=== PATIENT | female | born 1935 | race Caucasian/White ===

== ENCOUNTER 2018-11-18 21:31 | Observation (INO) | payer MEDICARE, OTHER ==
[2018-11-18] MEDS ORDERED: Sodium Chloride 0.9% 1,000 ML IV ONE (21:48)
--- NOTE | 2018-11-18 21:56 | EDM.PDOC ---
ED HPI GENERAL MEDICAL PROBLEM - General Chief Complaint: General Stated Complaint: Fall 3 to 5 days ago Time Seen by Provider: 11/18/18 21:45 Source of Information: Reports: Patient, EMS, Other (neighbor) History Limitations: Reports: No Limitations - History of Present Illness INITIAL COMMENTS - FREE TEXT/NARRATIVE: Patient brought to ER by EMS after somehow slipping to the ground of her home and not being able to get up for the last two days. Denies actual fall. Her neighbor is present and says that she spoke to the patient by phone Friday and Friday and that things were ok at those times. Neighbor feels that the longest the patient could have been on the floor was 2 days. Patient insists she was on the floor for 5 days. Patient knows year/month but not day of week. Is oriented to self. Neighbor relates to us that an attempt was made to get the patient admitted to a penitentiary but her daughter from [place] refused and wanted the patient to stay at home where she lives alone. House was clean/tidy per EMS. Patient reports that she was able to crawl around on the floor but was unable to get to any food/water. She is asking staff for something to eat and says she is hungry. Very chatty. Denies any pain/injury. EMS gave 500ml NS bolus en route. - Related Data Allergies Allergy/AdvReac Type Severity Reaction Status Date / Time No Known Allergies Allergy Verified 11/18/18 21:44 Home Meds: Home Meds Aspirin [Halfprin] 81 mg PO DAILY 11/18/18 [History] Haloperidol [Haldol] 0.5 mg PO DAILY 11/18/18 [History] Past Medical History Psychiatric History: Reports: Anxiety, Depression, Other (See Below) (reports that she had a nervous breakdown in 1983) Social & Family History - Family History Family Medical History: Noncontributory - Tobacco Use Smoking Status *Q: Never Smoker - Alcohol Use Alcohol Use History: No - Recreational Drug Use Recreational Drug Use: No Drug Use in Last 12 Months: No - Living Situation & Occupation Living situation: Reports: Alone ED ROS GENERAL - Review of Systems Review Of Systems: See Below Constitutional: Denies: Fever, Chills, Malaise, Diaphoresis HEENT: Reports: No Symptoms, Glasses Respiratory: Reports: No Symptoms Cardiovascular: Reports: No Symptoms. Denies: Chest Pain GI/Abdominal: Reports: No Symptoms. Denies: Abdominal Pain, Constipation, Diarrhea, Nausea, Vomiting : Reports: No Symptoms Musculoskeletal: Reports: Other (has baseline chronic osteoarthritis but denies any acute musculoskeletal injuries. ) Skin: Reports: No Symptoms (denies injuries. ) Neurological: Reports: No Symptoms Psychiatric: Reports: No Symptoms ED EXAM, GENERAL - Physical Exam Exam: See Below Exam Limited By: No Limitations General Appearance: Alert, WD/WN, No Apparent Distress Eye Exam: Bilateral Eye: EOMI, PERRL Ears: Normal External Exam Nose: No: Nasal Deformity, Nasal Swelling, Nasal Drainage Throat/Mouth: Normal Lips, Normal Voice, No Airway Compromise Head: Atraumatic, Other Neck: Supple, Non-Tender, Full Range of Motion Respiratory/Chest: No Respiratory Distress, Lungs Clear, Normal Breath Sounds, No Accessory Muscle Use, Chest Non-Tender Cardiovascular: Regular Rate, Rhythm, No Edema, No Murmur Peripheral Pulses: 2+: Radial (L), Radial (R) GI/Abdominal: Normal Bowel Sounds, Soft, Non-Tender, No Distention (Female) Exam: Deferred Rectal (Female) Exam: Deferred Back Exam: Normal Inspection. No: CVA Tenderness (L), CVA Tenderness (R), Muscle Spasm Extremities: Normal Inspection, Normal Range of Motion, Non-Tender, No Pedal Edema, Normal Capillary Refill Neurological: Alert, Oriented, Normal Cognition, No Motor/Sensory Deficits Psychiatric: Normal Affect, Normal Mood Skin Exam: Warm, Dry, Intact, Normal Color. No: Ecchymosis, Erythema Course - Vital Signs Last Recorded V/S: Last Vital Signs Temp 36.6 C 11/18/18 21:35 Pulse 80 11/18/18 21:35 Resp 16 11/18/18 21:35 BP 138/72 11/18/18 21:35 Pulse Ox 96 11/18/18 21:35 - Orders/Labs/Meds Orders: Active Orders 24 hr Category Date Time Status UA W/MICROSCOPIC [URIN] Stat Lab 11/18/18 21:45 Ordered Sodium Chloride 0.9% [Normal Saline] 1,000 ml Med 11/18/18 21:48 Active IV .BOLUS Medication Orders Sodium Chloride (Normal Saline) 1,000 mls @ 200 mls/hr IV .BOLUS ONE Stop: 11/19/18 02:47 Last Admin: 11/18/18 22:17 Dose: 200 mls/hr Labs: Laboratory Tests 11/18/18 11/18/18 11/18/18 Range/Units 21:45 21:45 21:45 WBC 8.2 (4.0-10.2) K/uL RBC 4.40 (3.77-5.09) M/uL Hgb 13.2 (11.7-15.5) g/dL Hct 38.7 (34.0-46.0) % MCV 88.0 (84.0-98.0) fL MCH 30.0 (28.2-33.3) pg MCHC 34.1 (31.7-36.0) g/dL RDW 13.3 (11.2-14.1) % Plt Count 236 (150-350) K/uL Neut % (Auto) 76.8 (45.0-80.0) % Lymph % (Auto) 13.5 (10.0-50.0) % [place] % (Auto) 8.8 (2.0-14.0) % Eos % (Auto) 0.5 (0.0-5.0) % Baso % (Auto) 0.4 (0.0-2.0) % Neut # (Auto) 6.31 (1.40-7.00) K/uL Lymph # (Auto) 1.11 (0.50-3.50) K/uL [place] # (Auto) 0.72 (0.00-1.00) K/uL Eos # (Auto) 0.04 (0.00-0.50) K/uL Baso # (Auto) 0.03 (0.00-0.20) K/uL Sodium 144 (136-145) mmol/L Potassium 3.9 (3.5-5.1) mmol/L Chloride 106 (98-107) mmol/L Carbon Dioxide 15.8 L (21.0-32.0) mmol/L BUN 26 H (7-18) mg/dL Creatinine 0.72 (0.51-1.17) mg/dL Est Cr Clr Drug Dosing 46.82 mL/min Estimated GFR (MDRD) > 60 mL/min Glucose 67 L (74-106) mg/dL Lactic Acid 1.9 (0.4-2.0) mmol/L Calcium 9.7 (8.5-10.1) mg/dL Total Bilirubin 1.4 H (0.2-1.0) mg/dL AST 102 H (15-37) U/L ALT 61 (12-78) U/L Alkaline Phosphatase 70 (46-116) IU/L Creatine Kinase 1628 H (26-308) U/L Creatine Kinase Index 2.1 (0.0-2.5) % CK-MB (CK-2) 34.00 H* (0.00-3.60) ng/mL Troponin I 0.018 (0.000-0.056) ng/mL Total Protein 6.0 L (6.4-8.2) g/dL Albumin 3.3 L (3.4-5.0) g/dL Meds: Medications Generic Name Dose Route Start Last Admin Trade Name Freq PRN Reason Stop Dose Admin Sodium Chloride 1,000 mls @ 200 mls/hr 11/18/18 21:48 11/18/18 22:17 Normal Saline IV 11/19/18 02:47 200 mls/hr .BOLUS ONE Administration - Re-Assessments/Exams Free Text/Narrative Re-Assessment/Exam: 11/18/18 23:01 Patient continues to be very alert and chatty, denying injuries. Labs obtained, with some elevation in BUN, AST, Bili, and CK noted. Plan is to admit to observation, continue IV fluids, and have PT and OT evaluate in the morning. Departure - Departure Time of Disposition: 23:05 Disposition: Refer to Observation Condition: Good Clinical Impression: Acute dehydration - Discharge Information *PRESCRIPTION DRUG MONITORING PROGRAM REVIEWED*: Not Applicable *COPY OF PRESCRIPTION DRUG MONITORING REPORT IN PATIENT DEXTER: Not Applicable Referrals: PCP,Unknown [Primary Care Provider] - Forms: ED Department Discharge - Problem List & Annotations (1) Dehydration SNOMED Code(s): 94421369 Code(s): E86.0 - DEHYDRATION Status: Acute Priority: High Annotation/ Comment:: Patient unable to get off of floor of home for approximately 48 hours. Unable to obtain food or water during this timeframe. Mild elevation BUN noted. Elevation of CK noted. Will continue to give IV fluid bolus over 5 hours and observe patient. PT and OT to see patient in AM. (2) Anxiety SNOMED Code(s): 96912753 Code(s): F41.9 - ANXIETY DISORDER, UNSPECIFIED Status: Chronic Priority: Low Annotation/Comment:: Stable per patient. - Problem List Review Problem List Initiated/Reviewed/Updated: Yes - My Orders Last 24 Hours: My Active Orders 11/18/18 21:45 UA W/MICROSCOPIC [URIN] Stat 11/18/18 21:48 Sodium Chloride 0.9% [Normal Saline] 1,000 ml IV .BOLUS - Assessment/Plan Admission H&P: Please use this note as an admission H&P Last 24 Hours: My Active Orders 11/18/18 21:45 UA W/MICROSCOPIC [URIN] Stat 11/18/18 21:48 Sodium Chloride 0.9% [Normal Saline] 1,000 ml IV .BOLUS Assessment:: Dehydration s/p unable to get up off of floor at home for 48 hours Plan: as above. Patient stable and appropriate for generalized supervision. Anticipate discharge within 24-48 hours if patient able to tolerate PO and be able to ambulate safely/perform ADLs.
[2018-11-18 22:24] LABS: CHLORIDE,CL 106 mmol/L (98-107); SODIUM,NA 144 mmol/L (136-145)
[2018-11-18] MEDS ORDERED: Haloperidol 0.5 MG Tab PO SCH (23:36)
[2018-11-18] MEDS: Haloperidol 0.5 MG Tab PO SCH (23:47)
[2018-11-19] MEDS ORDERED: Acetaminophen 325 MG Tab PO PRN (01:28)
[2018-11-19] MEDS ORDERED: cefTRIAXone 1 GM in Sodium Chloride 0.9% 100 ML IV SCH (08:30)
--- NOTE | 2018-11-19 08:51 | PCM.PN ---
- General Info Date of Service: 11/19/18 Admission Dx/Problem (Free Text): 1. Confusion 2. Minor fall 3. Dehydration Functional Status: Reports: Pain Controlled, Tolerating Diet, Urinating, New Symptoms (Right proximal arm pain and weakness in her legs). Denies: Ambulating Pain Score: 5 - Review of Systems General: Reports: Weakness. Denies: Fever, Fatigue, Malaise, Chills, Night Sweats, Appetite (Adequate) HEENT: Reports: No Symptoms. Denies: Dysphasia, Ear Pain, Eye Pain, Headaches, Sinus Congestion, Sore Throat, Visual Changes Pulmonary: Reports: No Symptoms. Denies: Shortness of Breath, Pleuritic Chest Pain, Cough, Sputum, Hemoptysis, Wheezing Cardiovascular: Reports: No Symptoms. Denies: Chest Pain, Palpitations, Dyspnea on Exertion, Orthopnea, Edema, Lightheadedness Gastrointestinal: Reports: Diarrhea, Other (Loose somewhat dark stools 3 since admission). Denies: Abdominal Pain, Constipation, Decreased Appetite, Difficulty Swallowing, Flatus, Hematochezia, Melena, Nausea Genitourinary: Reports: Dysuria, Frequency, Incontinence. Denies: Burning, Pain , Urgency, Flank Pain Musculoskeletal: Reports: Arm Pain (Right proximal arm), Leg Pain (Bilateral leg weakness). Denies: Neck Pain, Shoulder Pain, Back Pain, Foot Pain, Joint Pain, Joint Swelling Skin: Reports: No Symptoms. Denies: Diaphoresis, Bruising Neurological: Reports: Confusion, Difficulty Walking (Secondary to leg weakness) , Weakness. Denies: Dizziness, Headache, Numbness, Paresthesia, Seizure, Syncope, Tingling, Tremors, Trouble Speaking, Change in Speech, Gait Disturbance Psychiatric: Reports: Confusion. Denies: Depression, Anxiety, Agitation, Hallucinations, Suicidal Ideation, Homicidal Ideation - Patient Data Vitals - Most Recent: Last Vital Signs Temp 36.6 C 11/18/18 21:35 Pulse 83 11/18/18 23:30 Resp 16 11/18/18 23:30 BP 139/70 11/18/18 23:30 Pulse Ox 95 11/18/18 23:30 Vital Signs - 24 hr 11/18/18 11/18/18 11/18/18 21:35 22:10 22:40 Temperature [ 36.6 C Temporal] Pulse, 80 88 78 Peripheral [ Pulse Oximetry] Respiratory 16 17 17 Rate Blood Pressure 138/72 125/61 114/71 [Right Upper Arm] O2 Sat by Pulse 96 96 95 Oximetry 11/18/18 23:30 Temperature [ Temporal] Pulse, 83 Peripheral [ Pulse Oximetry] Respiratory 16 Rate Blood Pressure 139/70 [Right Upper Arm] O2 Sat by Pulse 95 Oximetry Weight - Most Recent: 58.06 kg I&O - Last 24 Hours: Intake & Output 11/18/18 11/19/18 11/19/18 22:59 06:59 14:59 Intake Total 1800 Output Total 300 Balance 1500 Imaging Impressions - Last 24 Hours: Acute abdominal x-rays shows evidence of moderate to severe scoliosis and osteoarthritic changes. Additional mild COPD changes noted with mildly elevated right hemidiaphragm but no pneumothorax or significant pulmonary infiltrates. Mild aortic valve calcification is present with no cardiomegaly or CHF. Very occasional fluid levels with mildly increased bowel gaseous pattern and moderate stool, however no free air, ileus, or obstruction. Note status post laparoscopic cholecystectomy. X-rays of the right humerus, 2 views, shows no evidence of fracture or dislocation. Moderate osteophytic changes. Lab Results Last 24 Hours: Laboratory Results - last 24 hr 11/18/18 11/18/18 11/18/18 Range/Units 21:45 21:45 21:45 WBC 8.2 (4.0-10.2) K/uL RBC 4.40 (3.77-5.09) M/uL Hgb 13.2 (11.7-15.5) g/dL Hct 38.7 (34.0-46.0) % MCV 88.0 (84.0-98.0) fL MCH 30.0 (28.2-33.3) pg MCHC 34.1 (31.7-36.0) g/dL RDW 13.3 (11.2-14.1) % Plt Count 236 (150-350) K/uL Neut % (Auto) 76.8 (45.0-80.0) % Lymph % (Auto) 13.5 (10.0-50.0) % Calloway % (Auto) 8.8 (2.0-14.0) % Eos % (Auto) 0.5 (0.0-5.0) % Baso % (Auto) 0.4 (0.0-2.0) % Neut # (Auto) 6.31 (1.40-7.00) K/uL Lymph # (Auto) 1.11 (0.50-3.50) K/uL Calloway # (Auto) 0.72 (0.00-1.00) K/uL Eos # (Auto) 0.04 (0.00-0.50) K/uL Baso # (Auto) 0.03 (0.00-0.20) K/uL Sodium 144 (136-145) mmol/L Potassium 3.9 (3.5-5.1) mmol/L Chloride 106 (98-107) mmol/L Carbon Dioxide 15.8 L (21.0-32.0) mmol/L BUN 26 H (7-18) mg/dL Creatinine 0.72 (0.51-1.17) mg/dL Est Cr Clr Drug Dosing 46.82 mL/min Estimated GFR (MDRD) > 60 mL/min Glucose 67 L (74-106) mg/dL Lactic Acid (0.4-2.0) mmol/L Calcium 9.7 (8.5-10.1) mg/dL Total Bilirubin 1.4 H (0.2-1.0) mg/dL AST 102 H (15-37) U/L ALT 61 (12-78) U/L Alkaline Phosphatase 70 (46-116) IU/L Creatine Kinase 1628 H (26-308) U/L Creatine Kinase Index 2.1 (0.0-2.5) % CK-MB (CK-2) 34.00 H* (0.00-3.60) ng/mL Troponin I 0.018 (0.000-0.056) ng/mL Total Protein 6.0 L (6.4-8.2) g/dL Albumin 3.3 L (3.4-5.0) g/dL Specimen Type Urinblad Urine Color Bernice Urine Appearance Clear Urine pH 5.5 (5.0-9.0) Ur Specific Sod >= 1.030 (1.005-1.030) Urine Protein 100 H (NEGATIVE) mg/dL Urine Glucose (UA) Negative (NEGATIVE) mg/dL Urine Ketones >=160 H (NEGATIVE) mg/dL Urine Occult Blood Trace-lysed H (NEGATIVE) Urine Nitrite Negative (NEGATIVE) Urine Bilirubin Small H (NEGATIVE) Urine Urobilinogen 0.2 (0.2-1.0) E.U./dL Ur Leukocyte Esterase Moderate H (NEGATIVE) Urine RBC 0-5 /HPF Urine WBC Semi-packed /HPF Ur Epithelial Cells Moderate H /LPF Urine Bacteria Many H (NONE TO FEW) /HPF Urinalysis Comment 11/18/18 Range/Units 21:45 WBC (4.0-10.2) K/uL RBC (3.77-5.09) M/uL Hgb (11.7-15.5) g/dL Hct (34.0-46.0) % MCV (84.0-98.0) fL MCH (28.2-33.3) pg MCHC (31.7-36.0) g/dL RDW (11.2-14.1) % Plt Count (150-350) K/uL Neut % (Auto) (45.0-80.0) % Lymph % (Auto) (10.0-50.0) % Calloway % (Auto) (2.0-14.0) % Eos % (Auto) (0.0-5.0) % Baso % (Auto) (0.0-2.0) % Neut # (Auto) (1.40-7.00) K/uL Lymph # (Auto) (0.50-3.50) K/uL Calloway # (Auto) (0.00-1.00) K/uL Eos # (Auto) (0.00-0.50) K/uL Baso # (Auto) (0.00-0.20) K/uL Sodium (136-145) mmol/L Potassium (3.5-5.1) mmol/L Chloride (98-107) mmol/L Carbon Dioxide (21.0-32.0) mmol/L BUN (7-18) mg/dL Creatinine (0.51-1.17) mg/dL Est Cr Clr Drug Dosing mL/min Estimated GFR (MDRD) mL/min Glucose (74-106) mg/dL Lactic Acid 1.9 (0.4-2.0) mmol/L Calcium (8.5-10.1) mg/dL Total Bilirubin (0.2-1.0) mg/dL AST (15-37) U/L ALT (12-78) U/L Alkaline Phosphatase (46-116) IU/L Creatine Kinase (26-308) U/L Creatine Kinase Index (0.0-2.5) % CK-MB (CK-2) (0.00-3.60) ng/mL Troponin I (0.000-0.056) ng/mL Total Protein (6.4-8.2) g/dL Albumin (3.4-5.0) g/dL Specimen Type Urine Color Urine Appearance Urine pH (5.0-9.0) Ur Specific Sod (1.005-1.030) Urine Protein (NEGATIVE) mg/dL Urine Glucose (UA) (NEGATIVE) mg/dL Urine Ketones (NEGATIVE) mg/dL Urine Occult Blood (NEGATIVE) Urine Nitrite (NEGATIVE) Urine Bilirubin (NEGATIVE) Urine Urobilinogen (0.2-1.0) E.U./dL Ur Leukocyte Esterase (NEGATIVE) Urine RBC /HPF Urine WBC /HPF Ur Epithelial Cells /LPF Urine Bacteria (NONE TO FEW) /HPF Urinalysis Comment Laboratory Tests 11/18/18 11/18/18 11/18/18 Range/Units 21:45 21:45 21:45 WBC 8.2 (4.0-10.2) K/uL RBC 4.40 (3.77-5.09) M/uL Hgb 13.2 (11.7-15.5) g/dL Hct 38.7 (34.0-46.0) % MCV 88.0 (84.0-98.0) fL MCH 30.0 (28.2-33.3) pg MCHC 34.1 (31.7-36.0) g/dL RDW 13.3 (11.2-14.1) % Plt Count 236 (150-350) K/uL Neut % (Auto) 76.8 (45.0-80.0) % Lymph % (Auto) 13.5 (10.0-50.0) % Calloway % (Auto) 8.8 (2.0-14.0) % Eos % (Auto) 0.5 (0.0-5.0) % Baso % (Auto) 0.4 (0.0-2.0) % Neut # (Auto) 6.31 (1.40-7.00) K/uL Lymph # (Auto) 1.11 (0.50-3.50) K/uL Calloway # (Auto) 0.72 (0.00-1.00) K/uL Eos # (Auto) 0.04 (0.00-0.50) K/uL Baso # (Auto) 0.03 (0.00-0.20) K/uL Sodium 144 (136-145) mmol/L Potassium 3.9 (3.5-5.1) mmol/L Chloride 106 (98-107) mmol/L Carbon Dioxide 15.8 L (21.0-32.0) mmol/L BUN 26 H (7-18) mg/dL Creatinine 0.72 (0.51-1.17) mg/dL Est Cr Clr Drug Dosing 46.82 mL/min Estimated GFR (MDRD) > 60 mL/min Glucose 67 L (74-106) mg/dL Lactic Acid (0.4-2.0) mmol/L Calcium 9.7 (8.5-10.1) mg/dL Total Bilirubin 1.4 H (0.2-1.0) mg/dL AST 102 H (15-37) U/L ALT 61 (12-78) U/L Alkaline Phosphatase 70 (46-116) IU/L Creatine Kinase 1628 H (26-308) U/L Creatine Kinase Index 2.1 (0.0-2.5) % CK-MB (CK-2) 34.00 H* (0.00-3.60) ng/mL Troponin I 0.018 (0.000-0.056) ng/mL NT-Pro-B Natriuret Pep (0-125) pg/mL Total Protein 6.0 L (6.4-8.2) g/dL Albumin 3.3 L (3.4-5.0) g/dL Specimen Type Urinblad Urine Color Bernice Urine Appearance Clear Urine pH 5.5 (5.0-9.0) Ur Specific Sod >= 1.030 (1.005-1.030) Urine Protein 100 H (NEGATIVE) mg/dL Urine Glucose (UA) Negative (NEGATIVE) mg/dL Urine Ketones >=160 H (NEGATIVE) mg/dL Urine Occult Blood Trace-lysed H (NEGATIVE) Urine Nitrite Negative (NEGATIVE) Urine Bilirubin Small H (NEGATIVE) Urine Urobilinogen 0.2 (0.2-1.0) E.U./dL Ur Leukocyte Esterase Moderate H (NEGATIVE) Urine RBC 0-5 /HPF Urine WBC Semi-packed /HPF Ur Epithelial Cells Moderate H /LPF Urine Bacteria Many H (NONE TO FEW) /HPF Urinalysis Comment 11/18/18 11/19/18 11/19/18 Range/Units 21:45 08:44 08:44 WBC 7.4 (4.0-10.2) K/uL RBC 4.07 (3.77-5.09) M/uL Hgb 12.3 (11.7-15.5) g/dL Hct 35.9 (34.0-46.0) % MCV 88.2 (84.0-98.0) fL MCH 30.2 (28.2-33.3) pg MCHC 34.3 (31.7-36.0) g/dL RDW 13.3 (11.2-14.1) % Plt Count 211 (150-350) K/uL Neut % (Auto) 69.0 (45.0-80.0) % Lymph % (Auto) 20.9 (10.0-50.0) % Calloway % (Auto) 8.8 (2.0-14.0) % Eos % (Auto) 0.8 (0.0-5.0) % Baso % (Auto) 0.5 (0.0-2.0) % Neut # (Auto) 5.09 (1.40-7.00) K/uL Lymph # (Auto) 1.54 (0.50-3.50) K/uL C[place]ay # (Auto) 0.65 (0.00-1.00) K/uL Eos # (Auto) 0.06 (0.00-0.50) K/uL Baso # (Auto) 0.04 (0.00-0.20) K/uL Sodium 140 (136-145) mmol/L Potassium 3.5 (3.5-5.1) mmol/L Chloride 104 (98-107) mmol/L Carbon Dioxide 19.9 L (21.0-32.0) mmol/L BUN 22 H (7-18) mg/dL Creatinine 0.69 (0.51-1.17) mg/dL Est Cr Clr Drug Dosing 48.86 mL/min Estimated GFR (MDRD) > 60 mL/min Glucose 95 (74-106) mg/dL Lactic Acid 1.9 (0.4-2.0) mmol/L Calcium 8.9 (8.5-10.1) mg/dL Total Bilirubin 0.8 (0.2-1.0) mg/dL AST 84 H (15-37) U/L ALT 54 (12-78) U/L Alkaline Phosphatase 60 (46-116) IU/L Creatine Kinase 1212 H (26-308) U/L Creatine Kinase Index 2.3 (0.0-2.5) % CK-MB (CK-2) 27.30 H* (0.00-3.60) ng/mL Troponin I 0.027 (0.000-0.056) ng/mL NT-Pro-B Natriuret Pep 621 H (0-125) pg/mL Total Protein 5.3 L (6.4-8.2) g/dL Albumin 2.7 L (3.4-5.0) g/dL Specimen Type Urine Color Urine Appearance Urine pH (5.0-9.0) Ur Specific Sod (1.005-1.030) Urine Protein (NEGATIVE) mg/dL Urine Glucose (UA) (NEGATIVE) mg/dL Urine Ketones (NEGATIVE) mg/dL Urine Occult Blood (NEGATIVE) Urine Nitrite (NEGATIVE) Urine Bilirubin (NEGATIVE) Urine Urobilinogen (0.2-1.0) E.U./dL Ur Leukocyte Esterase (NEGATIVE) Urine RBC /HPF Urine WBC /HPF Ur Epithelial Cells /LPF Urine Bacteria (NONE TO FEW) /HPF Urinalysis Comment Florian Results Last 24 Hours: Urine specimen set up for culture and sensitivity today. Med Orders - Current: Current Medications Acetaminophen (Tylenol) 325 mg PO Q6H PRN PRN Reason: Pain/Fever Aspirin (Halfprin) 81 mg PO DAILY [facility] Haloperidol (Haldol) 0.25 mg PO BEDTIME TOM Last Admin: 11/18/18 23:47 Dose: 0.25 mg Lactated Ringer's (Ringers, Lactated) 1,000 mls @ 100 mls/hr IV ASDIRECTED TOM Loperamide HCl (Imodium Ad) 2 mg PO Q6H PRN PRN Reason: Diarrhea Stop: 11/21/18 08:00 Pantoprazole Sodium (Protonix Iv) 40 mg IVPUSH Q12H TOM Trimethoprim/Sulfamethoxazole (Septra Ds) 1 tab PO BID TOM Discontinued Medications Haloperidol (Haldol) 0.5 mg PO BEDTIME TOM Last Admin: 11/19/18 00:50 Dose: Not Given Sodium Chloride (Normal Saline) 1,000 mls @ 200 mls/hr IV .BOLUS ONE Stop: 11/19/18 02:47 Last Admin: 11/18/18 22:17 Dose: 200 mls/hr - Exam Quality Assessment: Urine Catheter. No: Supplemental Oxygen, Central Line/PICC , DVT Prophylaxis, Skin Breakdown, Restraints General: Alert, Oriented, Cooperative, No Acute Distress HEENT: Pupils Equal, Pupils Reactive, EOMI, Mucous Membr. Moist/[place] Neck: Supple, Trachea Midline, No JVD, No Thyromegaly. No: Carotid Bruit Lungs: Normal Respiratory Effort, Rales (Mild bilateral basilar rales). No: Rhonchi, Rub, Stridor, Wheezing Cardiovascular: Regular Rate, Regular Rhythm, No Murmurs. No: Murmurs, Gallops , Rubs GI/Abdominal Exam: Normal Bowel Sounds, Soft, Non-Tender, No Organomegaly, No Distention, No Abnormal Bruit, No Mass, Pelvis Stable. No: Guarding (Female) Exam: Deferred Back Exam: Normal Inspection, Full Range of Motion. No: CVA Tenderness (L), CVA Tenderness (R), Muscle Spasm Extremities: Normal Range of Motion, No Pedal Edema, Normal Capillary Refill, Arm Pain (Mild palpation pain over the proximal to mid right humerus with no deformity, ecchymosis, swelling, etc.). No: Marilyn's Sign, Leg Pain Peripheral Pulses: 2+: Radial (L), Radial (R), Dorsalis Pedis (L), Dorsalis Pedis (R) Skin: Warm, Dry, Intact. 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 No: Agitated, Hallucinations, Withdrawal Symptoms - Problem List & Annotations (1) Confusion SNOMED Code(s): 331272863 Code(s): R41.0 - DISORIENTATION, UNSPECIFIED Status: Acute Priority: High Current Visit: Yes Onset Date: ~11/18/18 Annotation/Comment:: Neighbors and friends are concerned about patient's overall care at home, including some confusion and problems with ADLs, which the patient denies. Note that she is currently comfort care. PT and OT has been ordered with additional care coordination order today for further patient assessment for possible home health versus long-term care placement. No history of head injury or other change in neurological status from minor fall prior to admission as per emergency room note. Prognosis guarded. (2) Dehydration SNOMED Code(s): 30115746 Code(s): E86.0 - DEHYDRATION Status: Acute Priority: High Current Visit : No Annotation/Comment:: Patient unable to get off of floor of home for approximately 48 hours prior to admission as per emergency room note and as above. Unable to obtain food or water during this timeframe. IV fluids as above. (3) Mixed anxiety depressive disorder SNOMED Code(s): 412033654 Code(s): F41.8 - OTHER SPECIFIED ANXIETY DISORDERS Status: Chronic Priority: Medium Current Visit: Yes Annotation/Comment:: Note additional psychosis and confusion as above with current low-dose Haldol therapy, which could affect her ambulation, cause heart failure, etc.. She is not on any antidepressant therapy at this time with consideration of this either during this hospitalization and/or at time of discharge. Continue to observe closely, including by her regular providers. (4) Elevated CK SNOMED Code(s): 271763036 Code(s): R74.8 - ABNORMAL LEVELS OF OTHER SERUM ENZYMES Status: Acute Priority: High Current Visit: Yes Onset Date: 11/19/18 Annotation/Comment: : Note elevated CK and CK-MB with normal cardiac index with no chest pain or anginal type symptoms. Mild change in troponin I, which is still normal, possibly secondary to mild renal disease versus borderline CHF. Additional possible rhabdomyolysis with patient receiving an IV bolus of fluids after admission with continuation of IV fluids at this time with caution. No sequelae from possible rhabdomyolysis with patient apparently lying on the ground/floor for a couple days prior to admission. Repeat EKG and cardiac enzymes, etc. in the a.m. (5) UTI (urinary tract infection) SNOMED Code(s): 51829795 Code(s): N39.0 - URINARY TRACT INFECTION, SITE NOT SPECIFIED Status: Acute Priority: High Current Visit: Yes Onset Date: ~11/18/18 Qualifiers: Urinary tract infection type: acute cystitis Hematuria presence: without hematuria Qualified Code(s): N30.00 - Acute cystitis without hematuria Annotation/Comment:: Patient does have some confusion and symptoms of a UTI prior to admission as above. Urine specimen set up for culture and sensitivity today. Initiate Bactrim DS for now. (6) LFT elevation SNOMED Code(s): 819582864, 104704249 Code(s): R94.5 - ABNORMAL RESULTS OF LIVER FUNCTION STUDIES Status: Acute Priority: High Current Visit: Yes Onset Date: 11/19/18 Annotation/ Comment:: Note mild LFTs elevation secondary to either mild CHF, etc.. Continue to observe closely with previous blood work in the a.m. (7) Hypoalbuminemia SNOMED Code(s): 061396827 Code(s): E88.09 - [facility] DISORDERS OF PLASMA-PROTEIN METABOLISM, NEC Status: Acute Priority: Medium Current Visit: Yes Onset Date: 11/18/18 Annotation/Comment:: High-protein Glucerna supplements twice a day as snacks initiated today. Continue to observe closely by regular providers at discharge. (8) Osteoarthritis SNOMED Code(s): 335958096 Code(s): M19.90 - UNSPECIFIED OSTEOARTHRITIS, UNSPECIFIED SITE Status: Chronic Priority: Medium Current Visit: Yes Qualifiers: Osteoarthritis location: multiple joints Osteoarthritis type: primary Qualified Code(s): M15.0 - Primary generalized (osteo)arthritis Annotation/Comment:: Other than some mild proximal right arm pain from recent fall or arthritis has been stable with no current medical therapy other than twice a day aspirin, including at bedtime. Secondary to somewhat dark stools she was advised not to take aspirin or NSAIDs at bedtime with ASA changed to a every morning basis. (9) CHF (congestive heart failure) SNOMED Code(s): 68432211 Code(s): I50.9 - HEART FAILURE, UNSPECIFIED Status: Acute Priority: High Current Visit: Yes Onset Date: 11/19/18 Qualifiers: Heart failure type: unspecified Heart failure chronicity: unspecified Qualified Code(s): I50.9 - Heart failure, unspecified Annotation/Comment:: Mild to moderate BNP elevation with no significant CHF by today's chest x-ray. IV hydration is needed secondary to her possible rhabdomyolysis with continuation of IV lactated Ringer's with caution. Note NO CODE STATUS with no further workup, including echocardiogram, etc.. Patient may need to be changed to an inpatient status tomorrow depending on her clinical course. No fluid restriction for now. (10) Comfort measures only status SNOMED Code(s): 45319545624811 Code(s): Z51.5 - ENCOUNTER FOR PALLIATIVE CARE Status: Chronic Priority: High Current Visit: Yes Annotation/Comment:: As above (11) Diarrhea SNOMED Code(s): 50143242 Code(s): R19.7 - DIARRHEA, UNSPECIFIED Status: Acute Priority: Medium Current Visit: Yes Onset Date: ~11/18/18 Qualifiers: Diarrhea type: unspecified type Qualified Code(s): R19.7 - Diarrhea, unspecified Annotation/Comment:: No recent antibiotic therapy. Note stool incontinence. Hemoccults and stool cultures to be obtained. C. difficile toxin not indicated at this time. Initiate when necessary Imodium as needed. Note abdominal x-rays as above. - Problem List Review Problem List Initiated/Reviewed/Updated: Yes - My Orders Last 24 Hours: My Active Orders 11/19/18 08:24 CBC WITH AUTO DIFF [HEME] Routine CK W CKMB [CHEM] Routine COMPREHENSIVE METABOLIC PN,CMP [CHEM] Routine PRO B-TYPE NATRIUR PEPT,BNPPRO [CHEM] Routine TROPONIN I [CHEM] Routine 11/19/18 08:26 CULTURE URINE [RM] Routine 11/19/18 08:27 EKG Documentation Completion [RC] ASDIRECTED EKG 12 Lead [EK] Stat 11/19/18 08:28 Comfort Measures [OM.PC] Routine 11/19/18 08:29 Chest 2V [CR] Routine 11/19/18 08:40 Loperamide [Imodium AD] 2 mg PO Q6H PRN 11/19/18 08:41 Abdomen Series w Chest 1V [CR] Routine OCCULT BLOOD, GASTRIC [OP] Routine STOOL CULTURE/SHIGA TOXIN [MREF] Routine 11/19/18 08:43 Consult to Case Management/[employer] [CONS] Routine 11/19/18 08:45 Lactated Ringers @ 100 MLS/HR(1,000ml) Lactated Ringers [Ringers, Lactated] 1, 000 ml IV ASDIRECTED Pantoprazole [ProTONIX IV] 40 mg IVPUSH Q12H Sulfamethoxazole/Trimethoprim [Septra DS] 1 tab PO BID 11/20/18 08:00 Aspirin [Halfprin] 81 mg PO DAILY - Assessment Assessment:: As above - Plan Plan:: As above. Extensive precautions were given to the patient, who is in agreement with the treatment plan. [facility] physician assumes care again in the a.m. Possible discharge tomorrow either to home with home health or possible long- term care placement.
[2018-11-19] MEDS ORDERED: Loperamide 2 MG Tab PO PRN (09:00)
[2018-11-19 09:20] LABS: CHLORIDE,CL 104 mmol/L (98-107); SODIUM,NA 140 mmol/L (136-145)
[2018-11-19] MEDS: Pantoprazole 40 MG Vial IVPUSH SCH ×2 (09:34→20:02)
[2018-11-19] MEDS: Sulfamethoxazole/Trimethoprim 800-160 MG Tab PO SCH ×2 (09:37→17:08)
[2018-11-19] MEDS: Lactated Ringers 1,000 ML IV SCH ×2 (09:41→19:59)
[2018-11-19] MEDS: Haloperidol 0.5 MG Tab PO SCH (19:58)
[2018-11-19] MEDS ORDERED: Aspirin 81 MG Tab.EC PO SCH (20:00)
[2018-11-20] MEDS: Lactated Ringers 1,000 ML IV SCH (07:22)
[2018-11-20] MEDS ORDERED: Aspirin 81 MG Tab.EC PO SCH (08:00)
[2018-11-20 08:04] LABS: CHLORIDE,CL 107 mmol/L (98-107); SODIUM,NA 142 mmol/L (136-145)
[2018-11-20] MEDS: Sulfamethoxazole/Trimethoprim 800-160 MG Tab PO SCH ×2 (08:21→18:31)
[2018-11-20] MEDS: Pantoprazole 40 MG Vial IVPUSH SCH ×2 (08:21→20:08)
--- NOTE | 2018-11-20 12:58 | PCM.PN ---
- General Info Date of Service: 11/20/18 Admission Dx/Problem (Free Text): 1. Confusion 2. Minor fall 3. Dehydration Subjective Update: Patient continues to complain of her legs feeling tired. No current pain complaint. Says that she otherwise if feeling well when she is asked. Functional Status: Reports: Pain Controlled, Tolerating Diet, Urinating, Other ( working with PT/OT for ADLs and ambulation). Denies: New Symptoms Pain Score: 3 - Review of Systems General: Reports: Weakness (legs). Denies: Fever, Malaise, Chills, Night Sweats HEENT: Reports: Headaches Pulmonary: Reports: No Symptoms Cardiovascular: Reports: No Symptoms Gastrointestinal: Reports: Diarrhea. Denies: Abdominal Pain, Nausea, Vomiting Genitourinary: Reports: No Symptoms Musculoskeletal: Reports: Other (generalized aches/osteroarthritis--patient says this is not new) Skin: Reports: No Symptoms Neurological: Reports: Confusion (noted by staff/family), Difficulty Walking ( states legs feel weaker than usual). Denies: Headache, Numbness, Tingling, Trouble Speaking, Change in Speech, Gait Disturbance Psychiatric: Reports: Confusion. Denies: Hallucinations - Patient Data Vitals - Most Recent: Last Vital Signs Temp 36.7 C 11/20/18 05:37 Pulse 83 11/20/18 05:37 Resp 15 11/20/18 05:37 BP 147/69 H 11/20/18 05:37 Pulse Ox 95 11/20/18 05:37 Weight - Most Recent: 56.109 kg I&O - Last 24 Hours: Intake & Output 11/19/18 11/20/18 11/20/18 22:59 06:59 14:59 Intake Total 1455 847 780 Output Total 200 100 Balance 1455 322 144 Lab Results Last 24 Hours: Laboratory Results - last 24 hr 11/20/18 11/20/18 Range/Units 07:20 07:20 WBC 5.8 (4.0-10.2) K/uL RBC 3.81 (3.77-5.09) M/uL Hgb 11.4 L (11.7-15.5) g/dL Hct 32.8 L (34.0-46.0) % MCV 86.1 (84.0-98.0) fL MCH 29.9 (28.2-33.3) pg MCHC 34.8 (31.7-36.0) g/dL RDW 13.1 (11.2-14.1) % Plt Count 178 (150-350) K/uL Neut % (Auto) 62.1 (45.0-80.0) % Lymph % (Auto) 23.4 (10.0-50.0) % [place] % (Auto) 10.7 (2.0-14.0) % Eos % (Auto) 3.3 (0.0-5.0) % Baso % (Auto) 0.5 (0.0-2.0) % Neut # (Auto) 3.61 (1.40-7.00) K/uL Lymph # (Auto) 1.36 (0.50-3.50) K/uL [place] # (Auto) 0.62 (0.00-1.00) K/uL Eos # (Auto) 0.19 (0.00-0.50) K/uL Baso # (Auto) 0.03 (0.00-0.20) K/uL Sodium 142 (136-145) mmol/L Potassium 3.1 L (3.5-5.1) mmol/L Chloride 107 (98-107) mmol/L Carbon Dioxide 24.3 (21.0-32.0) mmol/L BUN 15 (7-18) mg/dL Creatinine 0.71 (0.51-1.17) mg/dL Est Cr Clr Drug Dosing 47.07 mL/min Estimated GFR (MDRD) > 60 mL/min Glucose 90 (74-106) mg/dL Calcium 8.7 (8.5-10.1) mg/dL Total Bilirubin 0.5 (0.2-1.0) mg/dL AST 56 H (15-37) U/L ALT 43 (12-78) U/L Alkaline Phosphatase 51 (46-116) IU/L Creatine Kinase 582 H (26-308) U/L Creatine Kinase Index 1.4 (0.0-2.5) % CK-MB (CK-2) 7.90 H* (0.00-3.60) ng/mL Troponin I 0.040 (0.000-0.056) ng/mL NT-Pro-B Natriuret Pep 615 H (0-125) pg/mL Total Protein 4.5 L (6.4-8.2) g/dL Albumin 2.2 L (3.4-5.0) g/dL Med Orders - Current: Current Medications Acetaminophen (Tylenol) 325 mg PO Q6H PRN PRN Reason: Pain/Fever Last Admin: 11/20/18 05:26 Dose: 325 mg Aspirin (Halfprin) 81 mg PO DAILY [facility] Last Admin: 11/20/18 08:21 Dose: 81 mg Haloperidol (Haldol) 0.25 mg PO BEDTIME [facility] Last Admin: 11/19/18 19:58 Dose: 0.25 mg Lactated Ringer's (Ringers, Lactated) 1,000 mls @ 100 mls/hr IV ASDIRECTED [facility] Last Admin: 11/20/18 07:22 Dose: 100 mls/hr Loperamide HCl (Imodium Ad) 2 mg PO Q6H PRN PRN Reason: Diarrhea Stop: 11/21/18 09:01 Last Admin: 11/19/18 11:37 Dose: 2 mg Pantoprazole Sodium (Protonix Iv) 40 mg IVPUSH Q12H [facility] Last Admin: 11/20/18 08:21 Dose: 40 mg Trimethoprim/Sulfamethoxazole (Septra Ds) 1 tab PO BID [facility] Last Admin: 11/20/18 08:21 Dose: 1 tab Discontinued Medications Haloperidol (Haldol) 0.5 mg PO BEDTIME [facility] Last Admin: 11/19/18 00:50 Dose: Not Given Sodium Chloride (Normal Saline) 1,000 mls @ 200 mls/hr IV .BOLUS ONE Stop: 11/19/18 02:47 Last Admin: 11/18/18 22:17 Dose: 200 mls/hr - Exam Quality Assessment: DVT Prophylaxis (support hose) General: Alert, Cooperative, No Acute Distress, Other (oriented to self/month/ year/location) HEENT: Pupils Equal, Pupils Reactive, EOMI, Mucous Membr. Moist/[place] Neck: Supple Lungs: Clear to Auscultation, Normal Respiratory Effort Cardiovascular: Regular Rate, Regular Rhythm GI/Abdominal Exam: Normal Bowel Sounds, Soft, Non-Tender, No Distention (Female) Exam: Deferred Back Exam: No: CVA Tenderness (L), CVA Tenderness (R), Muscle Spasm Extremities: Non-Tender, No Pedal Edema, Normal Capillary Refill Skin: Warm, Dry Neurological: No New Focal Deficit Psy/Mental Status: Alert, Normal Affect, Normal Mood EKG INTERPRETATION EKG Date: 11/20/18 Time: 07:29 Rhythm: Other (sinus) Rate (Beats/Min): 65 [place]: Normal P-Wave: Present QRS: Normal ST-T: Other (No changes observed suggestive of acute ischemia at this time.) Comparison: No Change - Problem List & Annotations (1) Confusion SNOMED Code(s): 374403586 Code(s): R41.0 - DISORIENTATION, UNSPECIFIED Status: Acute Priority: High Current Visit: Yes Onset Date: ~11/18/18 Annotation/Comment:: Neighbors and friends are concerned about patient's overall care at home, including some confusion and problems with ADLs, which the patient denies. Noted by staff that patient repeats self frequently, contradicts self. Does not recall that she has been told multiple times that she was on the floor for no longer than 48 hours. Does not appear to recognize staff that have interacted with her during stay. Staff noted patient said that she was at home instead of being in hospital. Note that she is currently comfort care. PT and OT has been ordered with additional care coordination order for further patient assessment for possible home health versus long-term care placement. No history of head injury or other change in neurological status from minor fall prior to admission as per emergency room note. Family is actively looking at possible placement per staff. Staff are waiting to hear from family if efforts have been successful. Prognosis guarded. (2) UTI (urinary tract infection) SNOMED Code(s): 83689357 Code(s): N39.0 - URINARY TRACT INFECTION, SITE NOT SPECIFIED Status: Acute Priority: High Current Visit: Yes Onset Date: ~11/18/18 Qualifiers: Urinary tract infection type: acute cystitis Hematuria presence: without hematuria Qualified Code(s): N30.00 - Acute cystitis without hematuria Annotation/Comment:: Patient does have some confusion and symptoms of a UTI prior to admission as above. Urine culture pending. Initiate Bactrim DS for now. (3) Dehydration SNOMED Code(s): 53940029 Code(s): E86.0 - DEHYDRATION Status: Acute Priority: High Current Visit : No Annotation/Comment:: Patient unable to get off of floor of home for approximately 48 hours prior to admission as per emergency room note and as above. Unable to obtain food or water during this timeframe. IV fluids as above. (4) CHF (congestive heart failure) SNOMED Code(s): 54108689 Code(s): I50.9 - HEART FAILURE, UNSPECIFIED Status: Acute Priority: High Current Visit: Yes Onset Date: 11/19/18 Qualifiers: Heart failure type: unspecified Heart failure chronicity: unspecified Qualified Code(s): I50.9 - Heart failure, unspecified Annotation/Comment:: Mild to moderate BNP elevation with no significant CHF by today's chest x-ray. IV hydration is needed secondary to her possible rhabdomyolysis with continuation of IV lactated Ringer's with caution. Note NO CODE STATUS with no further workup, including echocardiogram, etc.. Patient may need to be changed to an inpatient status tomorrow depending on her clinical course. No fluid restriction for now. (5) Diarrhea SNOMED Code(s): 39726423 Code(s): R19.7 - DIARRHEA, UNSPECIFIED Status: Acute Priority: Medium Current Visit: Yes Onset Date: ~11/18/18 Qualifiers: Diarrhea type: unspecified type Qualified Code(s): R19.7 - Diarrhea, unspecified Annotation/Comment:: No recent antibiotic therapy. Note stool incontinence. Hemoccults and stool cultures to be obtained. C. difficile toxin not indicated at this time. Initiate when necessary Imodium as needed. Note abdominal x-rays as above. (6) Elevated CK SNOMED Code(s): 945275783 Code(s): R74.8 - ABNORMAL LEVELS OF OTHER SERUM ENZYMES Status: Acute Priority: High Current Visit: Yes Onset Date: 11/19/18 Annotation/Comment: : Levels improving. Note elevated CK and CK-MB with normal cardiac index with no chest pain or anginal type symptoms. Mild change in troponin I, which is still normal, possibly secondary to mild renal disease versus borderline CHF. Additional possible rhabdomyolysis with patient receiving an IV bolus of fluids after admission with continuation of IV fluids at this time with caution. No sequelae from possible rhabdomyolysis with patient apparently lying on the ground/floor for a couple days prior to admission. (7) Hypoalbuminemia SNOMED Code(s): 174376888 Code(s): E88.09 - OTH DISORDERS OF PLASMA-PROTEIN METABOLISM, NEC Status: Acute Priority: Medium Current Visit: Yes Onset Date: 11/18/18 Annotation/Comment:: High-protein Glucerna supplements twice a day as snacks initiated today. Continue to observe closely by regular providers at discharge. (8) LFT elevation SNOMED Code(s): 847473663, 930178494 Code(s): R94.5 - ABNORMAL RESULTS OF LIVER FUNCTION STUDIES Status: Acute Priority: High Current Visit: Yes Onset Date: 11/19/18 Annotation/ Comment:: Note mild LFTs elevation secondary to either mild CHF, etc.. Continue to observe closely (9) Comfort measures only status SNOMED Code(s): 69032954650187 Code(s): Z51.5 - ENCOUNTER FOR PALLIATIVE CARE Status: Chronic Priority: High Current Visit: Yes Annotation/Comment:: As above (10) Mixed anxiety depressive disorder SNOMED Code(s): 738365681 Code(s): F41.8 - OTHER SPECIFIED ANXIETY DISORDERS Status: Chronic Priority: Medium Current Visit: Yes Annotation/Comment:: Note additional psychosis and confusion as above with current low-dose Haldol therapy, which could affect her ambulation, cause heart failure, etc.. She is not on any antidepressant therapy at this time with consideration of this either during this hospitalization and/or at time of discharge. Continue to observe closely, including by her regular providers. (11) Osteoarthritis SNOMED Code(s): 731188974 Code(s): M19.90 - UNSPECIFIED OSTEOARTHRITIS, UNSPECIFIED SITE Status: Chronic Priority: Medium Current Visit: Yes Qualifiers: Osteoarthritis location: multiple joints Osteoarthritis type: primary Qualified Code(s): M15.0 - Primary generalized (osteo)arthritis Annotation/Comment:: Other than some mild proximal right arm pain from recent fall or arthritis has been stable with no current medical therapy other than twice a day aspirin, including at bedtime. Secondary to somewhat dark stools she was advised not to take aspirin or NSAIDs at bedtime with ASA changed to a every morning basis. (12) Hypokalemia SNOMED Code(s): 93948646 Code(s): E87.6 - HYPOKALEMIA Status: Acute Priority: Medium Current Visit: Yes Annotation/Comment:: May be diluational given the IV fluids. Initiate PO replacement today. - Problem List Review Problem List Initiated/Reviewed/Updated: Yes - My Orders Last 24 Hours: My Active Orders 11/20/18 12:34 UA W/MICROSCOPIC [URIN] Routine - Assessment Assessment:: As above - Plan Plan:: As above. Repeat UA requested to see if UTI responding to current therapy regimen. Waiting to hear back from patient's family regarding possible [place] [facility] placement vs home health which they are currently investigating. Currently does not meet criteria for acute admission. Possible discharge later today.
[2018-11-20] MEDS ORDERED: Potassium Chloride 20 MEQ Tab.ER PO ONE (13:13)
[2018-11-20] MEDS: Haloperidol 0.5 MG Tab PO SCH (20:08)
--- NOTE | 2018-11-20 20:15 | PCM.DCSUM1 ---
Discharge Summary - Hospital Course HPI Initial Comments: Admitted observation after being found on floor of house. Reportedly unable to get back on her own feet for up to 48 hours. No injuries noted acutely. Diagnosis: Stroke: No - Discharge Data Discharge Date: 11/20/18 Discharge Disposition: DC/Tfer W/I Hosp To Swing 61 Condition: Good - Discharge Diagnosis/Problem(s) (1) Confusion SNOMED Code(s): 353176201 ICD Code: R41.0 - DISORIENTATION, UNSPECIFIED Status: Acute Priority: High Current Visit: Yes Onset Date: ~11/18/18 Problem Details: Patient admitted to Swing Bed due to continued concerns centered around her safety and ability to function if she were discharged home. Family is actively looking into intermediate placement at this time. Given that it is the weekend, the earliest patient could be likely placed would be Friday. Neighbors and friends are concerned about patient's overall care at home, including some confusion and problems with ADLs, which the patient denies. Noted by staff that patient repeats self frequently, contradicts self. Does not recall that she has been told multiple times that she was on the floor for no longer than 48 hours. Does not appear to recognize staff that have interacted with her during stay. Staff noted patient said that she was at home instead of being in hospital. Note that she is currently comfort care. PT and OT has been ordered with additional care coordination order for further patient assessment for possible home health versus long-term care placement. No history of head injury or other change in neurological status from minor fall prior to admission as per emergency room note. Prognosis guarded. (2) UTI (urinary tract infection) SNOMED Code(s): 55014149 ICD Code: N39.0 - URINARY TRACT INFECTION, SITE NOT SPECIFIED Status: Acute Priority: High Current Visit: Yes Onset Date: ~11/18/18 Problem Details: Patient does have some confusion and symptoms of a UTI prior to admission as above. Urine culture pending. Repeat UA today shows patient is responding to Bactrim DS. Qualifiers: Urinary tract infection type: acute cystitis Hematuria presence: without hematuria Qualified Code(s): N30.00 - Acute cystitis without hematuria (3) Dehydration SNOMED Code(s): 38397411 ICD Code: E86.0 - DEHYDRATION Status: Acute Priority: High Current Visit: No Problem Details: Patient unable to get off of floor of home for approximately 48 hours prior to admission as per emergency room note and as above. Unable to obtain food or water during this timeframe. IV fluids given during observation stay. (4) CHF (congestive heart failure) SNOMED Code(s): 95646634 ICD Code: I50.9 - HEART FAILURE, UNSPECIFIED Status: Acute Priority: High Current Visit: Yes Onset Date: 11/19/18 Problem Details: Mild to moderate BNP elevation with no significant CHF by chest x-ray. Note NO CODE STATUS with no further workup, including echocardiogram, etc.. No fluid restriction for now. Qualifiers: Heart failure type: unspecified Heart failure chronicity: unspecified Qualified Code(s): I50.9 - Heart failure, unspecified (5) Diarrhea SNOMED Code(s): 81774447 ICD Code: R19.7 - DIARRHEA, UNSPECIFIED Status: Acute Priority: Medium Current Visit: Yes Onset Date: ~11/18/18 Problem Details: No recent antibiotic therapy. Note stool incontinence. Hemoccults and stool cultures to be obtained. C. difficile toxin not indicated at this time. Initiate when necessary Imodium as needed. Note abdominal x-rays as above. Qualifiers: Diarrhea type: unspecified type Qualified Code(s): R19.7 - Diarrhea, unspecified (6) Elevated CK SNOMED Code(s): 666743629 ICD Code: R74.8 - ABNORMAL LEVELS OF OTHER SERUM ENZYMES Status: Acute Priority: High Current Visit: Yes Onset Date: 11/19/18 Problem Details: Levels improving. Note elevated CK and CK-MB with normal cardiac index with no chest pain or anginal type symptoms. Mild change in troponin I, which is still normal, possibly secondary to mild renal disease versus borderline CHF. Additional possible rhabdomyolysis with patient receiving an IV bolus of fluids after admission with continuation of IV fluids at this time with caution. No sequelae from possible rhabdomyolysis with patient apparently lying on the ground/floor for a couple days prior to admission. (7) Hypoalbuminemia SNOMED Code(s): 186932815 ICD Code: E88.09 - OTH DISORDERS OF PLASMA-PROTEIN METABOLISM, NEC Status: Acute Priority: Medium Current Visit: Yes Onset Date: 11/18/18 Problem Details: High-protein Glucerna supplements twice a day as snacks initiated today. Continue to observe closely by regular providers at discharge. (8) LFT elevation SNOMED Code(s): 047968660, 187427915 ICD Code: R94.5 - ABNORMAL RESULTS OF LIVER FUNCTION STUDIES Status: Acute Priority: High Current Visit: Yes Onset Date: 11/19/18 Problem Details : Note mild LFTs elevation secondary to either mild CHF, etc. Improving. Continue to observe closely (9) Comfort measures only status SNOMED Code(s): 13279988687556 ICD Code: Z51.5 - ENCOUNTER FOR PALLIATIVE CARE Status: Chronic Priority : High Current Visit: Yes Problem Details: As above (10) Mixed anxiety depressive disorder SNOMED Code(s): 420413909 ICD Code: F41.8 - OTHER SPECIFIED ANXIETY DISORDERS Status: Chronic Priority: Medium Current Visit: Yes Problem Details: Note additional psychosis and confusion as above with current low-dose Haldol therapy, which could affect her ambulation, cause heart failure, etc.. She is not on any antidepressant therapy at this time with consideration of this either during this hospitalization and/or at time of discharge. Continue to observe closely, including by her regular providers. (11) Osteoarthritis SNOMED Code(s): 095106097 ICD Code: M19.90 - UNSPECIFIED OSTEOARTHRITIS, UNSPECIFIED SITE Status: Chronic Priority: Medium Current Visit: Yes Problem Details: Other than some mild proximal right arm pain from recent fall or arthritis has been stable with no current medical therapy other than twice a day aspirin, including at bedtime. Secondary to somewhat dark stools she was advised not to take aspirin or NSAIDs at bedtime with ASA changed to a every morning basis. Qualifiers: Osteoarthritis location: multiple joints Osteoarthritis type: primary Qualified Code(s): M15.0 - Primary generalized (osteo)arthritis (12) Hypokalemia SNOMED Code(s): 89216975 ICD Code: E87.6 - HYPOKALEMIA Status: Acute Priority: Medium Current Visit: Yes Problem Details: May be diluational given the IV fluids. Initiate PO replacement today. - Patient Summary/Data Consults: Consultations 11/19/18 01:26 PT Evaluation and Treatment [CONS] Routine 11/19/18 01:27 OT Evaluation and Treatment [CONS] Routine 11/19/18 08:43 Consult to Case Management/Machine Grainer [CONS] Routine Hospital Course: Patient admitted observation after initial evaluation in ER. She did not qualify for inpatient admission. She was noted to have a UTI when she was able to provide a UA sample. Bactrim DS ordered. UC pending. No focal injuries from fall observed during patient's stay. Patient's cognitive functioning became main concern as noted above as staff had repeat interactions with patient. Family and neighbors have been concerned about her cognitive functioning for some time. She was also observed to avoid ambulating, even when being evaluated by PT and OT. She cited that she felt weak "in the legs" and preferred to sit in her chair. Family, staff, neighbors concerned about patient's safety if she were to return home. She did not qualify for acute admission to the hospital. Family looked into intermediate placement but was unable to find definitive placement. Given that today is Friday, the next chance for placement and transfer of the patient to a receiving facility would be Friday. Family decided that they would agree to have the patient admitted to Swing Bed under self-pay as she does not have a qualifying stay for Swing Bed coverage under insurance. - Patient Instructions Diet: Heart Healthy Diet Activity: As Tolerated - Discharge Plan *PRESCRIPTION DRUG MONITORING PROGRAM REVIEWED*: Not Applicable *COPY OF PRESCRIPTION DRUG MONITORING REPORT IN PATIENT DEXTER: Not Applicable Home Medications: Home Meds Aspirin [Halfprin] 81 mg PO BID 11/18/18 [History] Haloperidol [Haldol] 0.25 mg PO DAILY 11/18/18 [History] Acetaminophen [Tylenol] 325 mg PO Q6H PRN tablet 11/20/18 [Rx] Aspirin [Halfprin] 81 mg PO DAILY tab.ec 11/20/18 [Rx] Haloperidol [Haldol] 0.25 mg PO BEDTIME tablet 11/20/18 [Rx] Loperamide [Imodium AD] 2 mg PO Q6H PRN tablet 11/20/18 [Rx] Sulfamethoxazole/Trimethoprim [Septra DS] 1 tab PO BID tablet 11/20/18 [Rx] Forms: ED Department Discharge Referrals: PCP,Unknown [Primary Care Provider] - - Discharge Summary/Plan Comment DC Time >30 min.: No - Patient Data Vitals - Most Recent: Last Vital Signs Temp 37.6 C 11/20/18 18:00 Pulse 83 11/20/18 18:00 Resp 17 11/20/18 18:00 BP 179/46 H 11/20/18 18:00 Pulse Ox 98 04/19/19 18:00 Weight - Most Recent: 56.109 kg I&O - Last 24 hours: Intake & Output 11/20/18 11/20/18 11/20/18 06:59 14:59 22:59 Intake Total 847 830 450 Output Total 200 200 Balance 647 630 450 Lab Results - Last 24 hrs: Laboratory Results - last 24 hr 11/20/18 11/20/18 11/20/18 Range/Units 07:20 07:20 12:15 WBC 5.8 (4.0-10.2) K/uL RBC 3.81 (3.77-5.09) M/uL Hgb 11.4 L (11.7-15.5) g/dL Hct 32.8 L (34.0-46.0) % MCV 86.1 (84.0-98.0) fL MCH 29.9 (28.2-33.3) pg MCHC 34.8 (31.7-36.0) g/dL RDW 13.1 (11.2-14.1) % Plt Count 178 (150-350) K/uL Neut % (Auto) 62.1 (45.0-80.0) % Lymph % (Auto) 23.4 (10.0-50.0) % Dorado % (Auto) 10.7 (2.0-14.0) % Eos % (Auto) 3.3 (0.0-5.0) % Baso % (Auto) 0.5 (0.0-2.0) % Neut # (Auto) 3.61 (1.40-7.00) K/uL Lymph # (Auto) 1.36 (0.50-3.50) K/uL [place]ado # (Auto) 0.62 (0.00-1.00) K/uL Eos # (Auto) 0.19 (0.00-0.50) K/uL Baso # (Auto) 0.03 (0.00-0.20) K/uL Sodium 142 (136-145) mmol/L Potassium 3.1 L (3.5-5.1) mmol/L Chloride 107 (98-107) mmol/L Carbon Dioxide 24.3 (21.0-32.0) mmol/L BUN 15 (7-18) mg/dL Creatinine 0.71 (0.51-1.17) mg/dL Est Cr Clr Drug Dosing 47.07 mL/min Estimated GFR (MDRD) > 60 mL/min Glucose 90 (74-106) mg/dL Calcium 8.7 (8.5-10.1) mg/dL Total Bilirubin 0.5 (0.2-1.0) mg/dL AST 56 H (15-37) U/L ALT 43 (12-78) U/L Alkaline Phosphatase 51 (46-116) IU/L Creatine Kinase 582 H (26-308) U/L Creatine Kinase Index 1.4 (0.0-2.5) % CK-MB (CK-2) 7.90 H* (0.00-3.60) ng/mL Troponin I 0.040 (0.000-0.056) ng/mL NT-Pro-B Natriuret Pep 615 H (0-125) pg/mL Total Protein 4.5 L (6.4-8.2) g/dL Albumin 2.2 L (3.4-5.0) g/dL Specimen Type Urinblad Urine Color Yellow Urine Appearance Clear Urine pH 6.0 (5.0-9.0) Ur Specific Banner >= 1.030 (1.005-1.030) Urine Protein Negative (NEGATIVE) mg/dL Urine Glucose (UA) Negative (NEGATIVE) mg/dL Urine Ketones Negative (NEGATIVE) mg/dL Urine Occult Blood Negative (NEGATIVE) Urine Nitrite Negative (NEGATIVE) Urine Bilirubin Negative (NEGATIVE) Urine Urobilinogen 0.2 (0.2-1.0) E.U./dL Ur Leukocyte Esterase Negative (NEGATIVE) Urine RBC 0-5 /HPF Urine WBC 10-20 H /HPF Ur Epithelial Cells Few /LPF Urine Bacteria Rare (NONE TO FEW) /HPF Urine Mucus Few H (NEGATIVE) /LPF 11/20/18 Range/Units 17:45 WBC (4.0-10.2) K/uL RBC (3.77-5.09) M/uL Hgb (11.7-15.5) g/dL Hct (34.0-46.0) % MCV (84.0-98.0) fL MCH (28.2-33.3) pg MCHC (31.7-36.0) g/dL RDW (11.2-14.1) % Plt Count (150-350) K/uL Neut % (Auto) (45.0-80.0) % Lymph % (Auto) (10.0-50.0) % Dorado % (Auto) (2.0-14.0) % Eos % (Auto) (0.0-5.0) % Baso % (Auto) (0.0-2.0) % Neut # (Auto) (1.40-7.00) K/uL Lymph # (Auto) (0.50-3.50) K/uL [place] # (Auto) (0.00-1.00) K/uL Eos # (Auto) (0.00-0.50) K/uL Baso # (Auto) (0.00-0.20) K/uL Sodium (136-145) mmol/L Potassium 3.3 L (3.5-5.1) mmol/L Chloride (98-107) mmol/L Carbon Dioxide (21.0-32.0) mmol/L BUN (7-18) mg/dL Creatinine (0.51-1.17) mg/dL Est Cr Clr Drug Dosing mL/min Estimated GFR (MDRD) mL/min Glucose (74-106) mg/dL Calcium (8.5-10.1) mg/dL Total Bilirubin (0.2-1.0) mg/dL AST (15-37) U/L ALT (12-78) U/L Alkaline Phosphatase (46-116) IU/L Creatine Kinase (26-308) U/L Creatine Kinase Index (0.0-2.5) % CK-MB (CK-2) (0.00-3.60) ng/mL Troponin I (0.000-0.056) ng/mL NT-Pro-B Natriuret Pep (0-125) pg/mL Total Protein (6.4-8.2) g/dL Albumin (3.4-5.0) g/dL Specimen Type Urine Color Urine Appearance Urine pH (5.0-9.0) Ur Specific Banner (1.005-1.030) Urine Protein (NEGATIVE) mg/dL Urine Glucose (UA) (NEGATIVE) mg/dL Urine Ketones (NEGATIVE) mg/dL Urine Occult Blood (NEGATIVE) Urine Nitrite (NEGATIVE) Urine Bilirubin (NEGATIVE) Urine Urobilinogen (0.2-1.0) E.U./dL Ur Leukocyte Esterase (NEGATIVE) Urine RBC /HPF Urine WBC /HPF Ur Epithelial Cells /LPF Urine Bacteria (NONE TO FEW) /HPF Urine Mucus (NEGATIVE) /LPF Med Orders - Current: Current Medications Acetaminophen (Tylenol) 325 mg PO Q6H PRN PRN Reason: Pain/Fever Last Admin: 11/20/18 05:26 Dose: 325 mg Aspirin (Halfprin) 81 mg PO DAILY [facility] Last Admin: 11/20/18 08:21 Dose: 81 mg Haloperidol (Haldol) 0.25 mg PO BEDTIME [facility] Last Admin: 11/20/18 20:08 Dose: 0.25 mg Loperamide HCl (Imodium Ad) 2 mg PO Q6H PRN PRN Reason: Diarrhea Stop: 11/21/18 09:01 Last Admin: 11/19/18 11:37 Dose: 2 mg Pantoprazole Sodium (Protonix Iv) 40 mg IVPUSH Q12H [facility] Last Admin: 11/20/18 20:08 Dose: 40 mg Trimethoprim/Sulfamethoxazole (Septra Ds) 1 tab PO BID [facility] Last Admin: 11/20/18 18:31 Dose: 1 tab Discontinued Medications Haloperidol (Haldol) 0.5 mg PO BEDTIME [facility] Last Admin: 11/19/18 00:50 Dose: Not Given Sodium Chloride (Normal Saline) 1,000 mls @ 200 mls/hr IV .BOLUS ONE Stop: 11/19/18 02:47 Last Admin: 11/18/18 22:17 Dose: 200 mls/hr Lactated Ringer's (Ringers, Lactated) 1,000 mls @ 100 mls/hr IV ASDIRECTED [facility] Last Admin: 11/20/18 07:22 Dose: 100 mls/hr Potassium Chloride (Klor-Con M20) 20 meq PO ONETIME ONE Stop: 11/20/18 13:14 Last Admin: 11/20/18 13:56 Dose: 20 meq
[2018-11-20] MEDS ORDERED: Sodium Chloride 0.9% 10 ML Syringe FLUSH PRN (20:51)
[2018-11-21] MEDS ORDERED: Sodium Chloride 0.9% 10 ML Syringe FLUSH SCH (08:00)
== END 2018-11-20 20:54 | disposition swing bed (61) ==
LOC: LL.ED 21:31 → UNDOADMOB 11-19 00:40 → LL.MS 11-19 00:40
PROVIDERS: ADMIT Emergency Medicine; ATTEND Emergency Medicine
DX: R41.0 Disorientation, unspecified (principal); N30.00 Acute cystitis without hematuria; E86.0 Dehydration; I50.9 Heart failure, unspecified; R19.7 Diarrhea, unspecified; R74.8 Abnormal levels of other serum enzymes; E88.09 Other disorders of plasma-protein metabolism, not elsewhere classified; R94.5 Abnormal results of liver function studies; F41.8 Other specified anxiety disorders; E87.6 Hypokalemia; Z51.5 Encounter for palliative care; Z79.82 Long term (current) use of aspirin; Z79.899 Other long term (current) drug therapy; M15.0 Primary generalized (osteo)arthritis
CPT/HCPCS: 36415; 73060-RT; 74022; 80053; 81001; 82550; 82553; 83605; 83880; 84132; 84484; 85025; 87086; 93005; 96360; 96361; 96372; 96374; 96376; 97162-GP; 97530-GP; 99284-25; A9270-GY; C9113; G0378; J7030; J7120

== ENCOUNTER 2018-11-20 19:55 | Inpatient (IN) | payer MEDICARE, OTHER ==
[2018-11-20] MEDS ORDERED: Loperamide 2 MG Tab PO PRN (21:52)
[2018-11-20] MEDS ORDERED: Sodium Chloride 0.9% 10 ML Syringe FLUSH PRN (21:52)
[2018-11-20] MEDS ORDERED: Potassium Chloride 10% 20 MEQ/15 ML Soln 15 ML UD Cup PO ONE (21:53)
[2018-11-20] MEDS: Acetaminophen 325 MG Tab PO PRN (22:47)
[2018-11-21 07:32] LABS: CHLORIDE,CL 106 mmol/L (98-107); SODIUM,NA 142 mmol/L (136-145)
[2018-11-21] MEDS ORDERED: Sulfamethoxazole/Trimethoprim 800-160 MG Tab PO SCH (08:00)
[2018-11-21] MEDS ORDERED: Pantoprazole 40 MG Vial IVPUSH SCH (09:00)
[2018-11-21] MEDS: SULFAMETHOXAZOLE PO SCH ×2 (15:51→20:29)
[2018-11-21] MEDS: Aspirin 81 MG Tab.EC PO SCH (15:51)
[2018-11-21] MEDS: Acetaminophen 325 MG Tab PO PRN (15:51)
[2018-11-21] MEDS: TRIMETHOPRIM PO SCH ×2 (15:51→20:29)
[2018-11-21] MEDS ORDERED: Pantoprazole 40 MG Tab.CR **OWN MED PO SCH (17:30)
[2018-11-21] MEDS: HALOPERIDOL 0.5 MG PO SCH (20:29)
[2018-11-22] MEDS: Pantoprazole 40 MG Tab.CR **OWN MED PO SCH (08:02)
[2018-11-22] MEDS: Aspirin 81 MG Tab.EC PO SCH (08:02)
[2018-11-22] MEDS: SULFAMETHOXAZOLE PO SCH ×2 (08:03→17:05)
[2018-11-22] MEDS: TRIMETHOPRIM PO SCH ×2 (08:03→17:05)
[2018-11-22] MEDS: Acetaminophen 325 MG Tab PO PRN ×2 (12:28→23:34)
[2018-11-22] MEDS ORDERED: Melatonin 3 MG Tab PO PRN (18:48)
[2018-11-22] MEDS: HALOPERIDOL 0.5 MG PO SCH (20:01)
[2018-11-23] MEDS: Pantoprazole 40 MG Tab.CR **OWN MED PO SCH (07:51)
[2018-11-23] MEDS: Aspirin 81 MG Tab.EC PO SCH (07:51)
[2018-11-23] MEDS: TRIMETHOPRIM PO SCH (07:52)
[2018-11-23] MEDS: SULFAMETHOXAZOLE PO SCH (07:52)
[2018-11-23] MEDS: Acetaminophen 325 MG Tab PO PRN (07:54)
--- NOTE | 2018-11-23 12:12 | PCM.DCSUM1 ---
Discharge Summary - Hospital Course Diagnosis: Stroke: No - Discharge Data Discharge Date: 11/23/18 Discharge Disposition: DC/Tfer to SNF 03 Condition: Good - Discharge Diagnosis/Problem(s) (1) Traumatic rhabdomyolysis SNOMED Code(s): 260655323 ICD Code: T79.6XXA - TRAUMATIC ISCHEMIA OF MUSCLE, INITIAL ENCOUNTER Status : Acute Current Visit: Yes (2) Elevated CK SNOMED Code(s): 769456299 ICD Code: R74.8 - ABNORMAL LEVELS OF OTHER SERUM ENZYMES Status: Acute Priority: High Current Visit: No Onset Date: 11/19/18 Problem Details: Levels improving. Note elevated CK and CK-MB with normal cardiac index with no chest pain or anginal type symptoms. Mild change in troponin I, which is still normal, possibly secondary to mild renal disease versus borderline CHF. Additional possible rhabdomyolysis with patient receiving an IV bolus of fluids after admission with continuation of IV fluids at this time with caution. No sequelae from possible rhabdomyolysis with patient apparently lying on the ground/floor for a couple days prior to admission. (3) UTI (urinary tract infection) SNOMED Code(s): 05289796 ICD Code: N39.0 - URINARY TRACT INFECTION, SITE NOT SPECIFIED Status: Acute Priority: High Current Visit: No Onset Date: ~11/18/18 Problem Details: Symptoms improving less confused will transfer to halfway today Qualifiers: - Patient Summary/Data Consults: Consultations 11/20/18 21:52 Consult to Case Management/Infrastructure Analyst [CONS] Routine OT Evaluation and Treatment [CONS] Routine PT Evaluation and Treatment [CONS] Routine - Discharge Plan *PRESCRIPTION DRUG MONITORING PROGRAM REVIEWED*: No *COPY OF PRESCRIPTION DRUG MONITORING REPORT IN PATIENT DEXTER: No Prescriptions/Med Rec: Pantoprazole Sodium [Protonix] 40 mg PO DAILY #10 [email or web address] Home Medications: Home Meds Acetaminophen [Tylenol] 325 mg PO Q6H PRN tablet 11/20/18 [Rx] Aspirin [Halfprin] 81 mg PO DAILY tab.ec 11/20/18 [Rx] Loperamide [Imodium AD] 2 mg PO Q6H PRN tablet 11/20/18 [Rx] Aspirin [Halfprin] 81 mg PO DAILY tab.ec 11/21/18 [Rx] Haloperidol [Haldol] 0.25 mg PO BEDTIME tablet 11/21/18 [Rx] Haloperidol [Haldol] 0.25 mg PO BEDTIME #10 tablet 11/21/18 [Rx] Pantoprazole Sodium [Protonix] 40 mg PO DAILY #10 suspdr.pkt 11/21/18 [Rx] Sulfamethoxazole/Trimethoprim [Septra DS] 1 tab PO BID tablet 11/21/18 [Rx] Sulfamethoxazole/Trimethoprim [Septra DS] 1 tab PO BID #10 tablet 11/21/18 [Rx] - Discharge Summary/Plan Comment DC Time >30 min.: No - General Info Functional Status: Reports: Tolerating Diet, Ambulating (With assistance) - Review of Systems General: Reports: Weakness HEENT: Reports: No Symptoms Pulmonary: Reports: No Symptoms Cardiovascular: Reports: No Symptoms Gastrointestinal: Reports: No Symptoms Genitourinary: Reports: No Symptoms Musculoskeletal: Reports: No Symptoms Skin: Reports: No Symptoms Neurological: Reports: No Symptoms Psychiatric: Reports: Confusion (Improved) - Patient Data Vitals - Most Recent: Last Vital Signs Temp 98.7 F 11/23/18 07:53 Pulse 89 11/23/18 07:53 Resp 18 11/23/18 07:53 BP 163/81 H 11/23/18 07:53 Pulse Ox 96 11/23/18 07:53 Weight - Most Recent: 123 lb I&O - Last 24 hours: Intake & Output 11/22/18 11/23/18 11/23/18 22:59 06:59 14:59 Intake Total 480 400 600 Output Total 550 750 300 Balance -70 -350 300 ETHAN Results - Last 24 hrs: Microbiology 11/22/18 18:00 Stool Occult Blood (ETHAN) - Final Stool / Feces NEGATIVE OCCULT BLOOD Med Orders - Current: Current Medications Acetaminophen (Tylenol) 325 mg PO Q6H PRN PRN Reason: Pain/Fever Last Admin: 11/23/18 07:54 Dose: 325 mg Aspirin (Halfprin) 81 mg PO DAILY [facility] Last Admin: 11/23/18 07:51 Dose: 81 mg Haloperidol (Haldol) 0.25 mg PO BEDTIME [facility] Last Admin: 11/22/18 20:01 Dose: 0.25 mg Melatonin (Melatonin) 6 mg PO BEDTIME PRN PRN Reason: Insomnia Last Admin: 11/22/18 20:01 Dose: 6 mg Pantoprazole Sodium (Protonix) 40 mg PO DAILY@0700 [facility] Last Admin: 11/23/18 07:51 Dose: 40 mg Sodium Chloride (Saline Flush) 10 ml FLUSH ASDIRECTED PRN PRN Reason: Keep Vein Open Trimethoprim/Sulfamethoxazole (Septra Ds) 1 tab PO BID [facility] Last Admin: 11/23/18 07:52 Dose: 1 tab Discontinued Medications Loperamide HCl (Imodium Ad) 2 mg PO Q6H PRN PRN Reason: Diarrhea Stop: 11/21/18 09:01 Pantoprazole Sodium (Protonix Iv) 40 mg IVPUSH Q12H [facility] Last Admin: 11/21/18 11:25 Dose: Not Given [facility] Stop: 11/21/18 17:30 Potassium Chloride (Potassium Chloride Solution) 20 meq PO ONETIME ONE Stop: 11/20/18 21:54 Last Admin: 11/20/18 22:29 Dose: 20 meq Trimethoprim/Sulfamethoxazole (Septra Ds) 1 tab PO BID [facility] Last Admin: 11/21/18 16:22 Dose: Not Given - Exam General: Reports: Alert, Oriented HEENT: Reports: Pupils Equal, Pupils Reactive, EOMI, Mucous Membr. Moist/[place] Neck: Reports: Supple Lungs: Reports: Clear to Auscultation, Normal Respiratory Effort Cardiovascular: Reports: Regular Rate, Regular Rhythm GI/Abdominal Exam: Normal Bowel Sounds, Soft, Non-Tender, No Organomegaly, No Distention, No Abnormal Bruit, No Mass, Pelvis Stable (Female) Exam: Deferred Rectal (Female) Exam: Deferred Back Exam: Reports: Normal Inspection, Full Range of Motion Extremities: Normal Inspection, Normal Range of Motion, Non-Tender, No Pedal Edema, Normal Capillary Refill, Limited Range of Motion Skin: Reports: Warm, Dry, Intact Neurological: Reports: No New Focal Deficit
== END 2018-11-23 13:05 | DRG 565 ==
LOC: LL.MS 20:59
PROVIDERS: ADMIT Emergency Medicine; ATTEND Family Medicine
DX: T79.6XXA Traumatic ischemia of muscle, initial encounter (principal); N30.00 Acute cystitis without hematuria; E86.0 Dehydration; I50.9 Heart failure, unspecified; R19.7 Diarrhea, unspecified; E88.09 Other disorders of plasma-protein metabolism, not elsewhere classified; R94.5 Abnormal results of liver function studies; Z51.5 Encounter for palliative care; F41.8 Other specified anxiety disorders; M15.0 Primary generalized (osteo)arthritis; E87.6 Hypokalemia; Z79.82 Long term (current) use of aspirin; Z79.899 Other long term (current) drug therapy
CPT/HCPCS: 36415; 80053; 82272; 82550; 85025; 87045; 87046; 87899; A9270-GY